=== PATIENT | female | born 1995 | race Caucasian/White ===

== ENCOUNTER 2018-01-19 17:17 | Emergency (ER) | payer BC ==
--- NOTE | 2018-01-19 18:12 | UC ---
Lower Extremity/Ankle HPI - HPI Summary HPI Summary: 22 yo female with right ankle pain x 5 days inversion injury able to bear wt with sl limp hx of prior ankle sprain - History of Current Complaint Chief Complaint: UCLowerExtremity Stated Complaint: RIGHT ANKLE COMPLAINT Time Seen by Provider: 01/19/18 18:02 Hx Obtained From: Patient Hx Last Menstrual Period: 01/17/18 Onset/Duration: Sudden Onset, Lasting Days Severity Initially: Moderate Severity Currently: Mild Pain Intensity: 3 Pain Scale Used: 0-10 Numeric Aggravating Factor(s): Standing, Ambulation Alleviating Factor(s): Rest, Elevation Able to Bear Weight: Yes Feet (Multiple View): 1 - tender/swollen - Allergies/Home Medications Allergies/Adverse Reactions: Allergies Allergy/AdvReac Type Severity Reaction Status Date / Time Penicillins Allergy Rash Verified 01/19/18 17:46 Home Medications: Home Medications Loratadine 10 mg PO DAILY 01/19/18 [History Confirmed 01/19/18] Norethindrone AC-Eth Estradiol [Júnior 1.5 mg-30 Mcg Tablet] 1 each PO DAILY 05/31 [History Confirmed 01/19/18] PMH/Surg Hx/FS Hx/Imm Hx Previously Healthy: Yes - Surgical History Surgical History: None - Family History Known Family History: Positive: Hypertension - Social History Alcohol Use: None Substance Use Type: None Smoking Status (MU): Never Smoked Tobacco Review of Systems Constitutional: Negative Skin: Negative Eyes: Negative ENT: Negative Respiratory: Negative Cardiovascular: Negative Gastrointestinal: Negative Genitourinary: Negative Motor: Negative Neurovascular: Negative Musculoskeletal: Arthralgia Neurological: Negative Psychological: Negative Is Patient Immunocompromised?: No All Other Systems Reviewed And Are Negative: Yes Physical Exam Triage Information Reviewed: Yes Appearance: Well-Appearing, No Pain Distress, Well-Nourished Vital Signs: Initial Vital Signs Temp 100.3 F 01/19/18 17:38 Pulse 87 01/19/18 17:38 Resp 16 01/19/18 17:38 BP 132/88 01/19/18 17:38 Pulse Ox 100 01/19/18 17:38 Vital Signs Reviewed: Yes Eyes: Positive: Conjunctiva Clear ENT: Positive: Hearing grossly normal. Negative: Nasal congestion, Nasal drainage, Muffled voice, Hoarse voice Neck: Positive: Supple, Nontender Respiratory: Positive: Lungs clear, Normal breath sounds, No respiratory distress Cardiovascular: Positive: RRR, No Murmur Musculoskeletal: Positive: Edema @ - right LM Neurological: Positive: Alert Diagnostics - Radiology No standard instances Xray Interpretation: Positive (See Comments) - Consider potential lateral supporting ligament injury Radiology Interpretation Completed By: Radiologist Lower Extremity Course/Dx - Differential Dx/Diagnosis Provider Diagnoses: ankle sprain Discharge - Sign-Out/Discharge Documenting (check all that apply): Discharge/Admit/Transfer - Discharge Plan Condition: Stable Disposition: HOME Patient Education Materials: Ankle Sprain (ED) Referrals: Dorinda Arellano PA [Primary Care Provider] - Additional Instructions: recheck in 2 weeks if not completely better rest ice elevation - Billing Disposition and Condition Condition: STABLE Disposition: HOME
--- NOTE | 2018-01-19 18:33 | RAD ---
Indication: RIGHT ankle pain following rolling injury 5 days ago. Comparison: No relevant prior exams [place] [facility] [place]. Technique: AP and lateral views RIGHT ankle. Report: Negative for fracture or articular malalignment. Moderate soft tissue swelling over the lateral malleolus and evidence for small talocrural joint effusion. IMPRESSION: Consider potential lateral supporting ligament injury.
== END 2018-01-19 18:59 | disposition home or self-care (01) ==
LOC: UCCORT 17:17
DX: S93.401A Sprain of unspecified ligament of right ankle, initial encounter (principal); M25.471 Effusion, right ankle; X50.0XXA Overexertion from strenuous movement or load, initial encounter; Y92.9 Unspecified place or not applicable; Z88.0 Allergy status to penicillin
CPT/HCPCS: 99201; G0463